=== PATIENT | male | born 1950 | race African-American/Black ===

== ENCOUNTER → 2018-07-17 | Outpatient (CLI) | payer MEDICARE, MEDICAID ==
--- NOTE | 2018-07-22 19:39 | SLEEPCENT ---
DATE OF PROCEDURE: 07/17/2018 ORDERED BY: Dr. Carmona Nocturnal polysomnography was performed for the titration of pressure therapy in this patient with severe obstructive sleep apnea syndrome. For testing, the patient was fit with a [employer]up[employer] Simplus full face mask of small size, 8 cm of water pressure was initially applied to the circuit and the lights were extinguished. 7 hours and 20 minutes of data were reviewed. There were 288 minutes of sleep identified. Sleep latency was prolonged at 35 minutes. Rapid eye movement (REM) latency was short at 67 minutes. Sleep architecture was fair with two REM cycles noted. Overall sleep efficiency was 66.7%. The patient's electrocardiogram showed a sinus rhythm with premature ventricular contractions (PVCs), average heart rate 80 beats per minute. EEG showed some coarsening and artifact. No focal events were identified. Respiratory events were reasonably palliated with continuous positive airway pressure (CPAP) at a pressure therapy of ++14. Further increases in CPAP pressure resulted in the emergence of central events. A bilevel device was tried late in the study but the patient did poorly and was unable to sleep after that point. IMPRESSION: Obstructive sleep apnea syndrome (G47.33). RECOMMENDATIONS: Nightly use of pressure therapy 14 cm of water.
== END ==
LOC: M SLEEP 19:36
PROVIDERS: ATTEND Internal Medicine Pulmonary Disease
DX: G47.33 Obstructive sleep apnea (adult) (pediatric) (principal)

== ENCOUNTER 2019-03-03 15:26 | Emergency (ER) | payer MEDICARE, MEDICAID ==
[~2019-03-03] VITALS: Ht 175.3 cm; Wt 131.8 kg
[2019-03-03] MEDS ORDERED: THIA100T7 PO (16:31)
[2019-03-03] MEDS ORDERED: ALEV220T22 PO (16:31)
[2019-03-03] MEDS ORDERED: BRIL90TA PO (16:31)
[2019-03-03] MEDS ORDERED: INSUHUMDS SC (16:31)
[2019-03-03] MEDS ORDERED: ROBI1LIQ9 PO (16:31)
[2019-03-03] MEDS ORDERED: LANTINJ4 SC (16:31)
[2019-03-03] MEDS ORDERED: GENT1SOL16 OU (16:31)
[2019-03-03] MEDS ORDERED: DULC5TAB PO (16:31)
[2019-03-03] MEDS ORDERED: LIPI20TA PO (16:31)
[2019-03-03] MEDS ORDERED: NITR4TASL SL (16:48)
[2019-03-03] MEDS ORDERED: AMLO10TA5 PO (16:48)
[2019-03-03] MEDS ORDERED: LOSA100T50 PO (16:48)
[2019-03-03] MEDS ORDERED: DRIS50003 PO (16:48)
[2019-03-03] MEDS ORDERED: VOLT1GEL15 TOP (16:48)
[2019-03-03] MEDS ORDERED: POTA10TA17 PO (16:48)
[2019-03-03] MEDS ORDERED: FLOM0.4C39 PO (16:48)
[2019-03-03] MEDS ORDERED: ABIL1TAB13 PO (16:48)
[2019-03-03] MEDS ORDERED: HYDR-3713 PO (16:48)
[2019-03-03] MEDS ORDERED: METF10004 PO (16:48)
[2019-03-03] MEDS ORDERED: DEPA1TAB PO (16:48)
[2019-03-03] MEDS ORDERED: IPRA0.00 NEB (16:48)
[2019-03-03] MEDS ORDERED: SIME40TA PO (16:48)
[2019-03-03] MEDS ORDERED: ASPI81TA85 PO (16:48)
[2019-03-03] MEDS ORDERED: METO200T28 PO (16:48)
[2019-03-03] MEDS ORDERED: FURO40TA2 PO (16:48)
[2019-03-03] MEDS ORDERED: RANE1000 PO (16:48)
[2019-03-03] MEDS ORDERED: GNP8.6TA PO (16:48)
[2019-03-03] MEDS ORDERED: MAALSUS19 PO (16:48)
[2019-03-03] MEDS ORDERED: DEPA1TAB3 PO (16:48)
[2019-03-03] MEDS ORDERED: SPIR-10 PO (16:48)
[2019-03-03] MEDS ORDERED: GLUC1KIT IM (16:48)
[2019-03-03] MEDS ORDERED: FINA5TAB2 PO (16:48)
[2019-03-03] MEDS ORDERED: NITR0.4D6 TOP (16:48)
[2019-03-03] MEDS ORDERED: GABA-1171 PO (16:48)
[2019-03-03] MEDS ORDERED: MORP1TAB19 PO (16:48)
[2019-03-03 16:51] LABS: HEMOGLOBIN 12.6 g/dl (13.5-17.5); MEAN CORPUSCULAR HEMOGLOBIN 33.3 pg (27.0-33.0); MEAN CORPUSCULAR HGB CONC 32.3 g/dl (32.0-36.5); MEAN CORPUSCULAR VOLUME 103.2 fl (80.0-96.0); PLATELET COUNT, AUTOMATED 191 10^3/uL (150-450); RED BLOOD COUNT 3.78 10^6/uL (4.30-6.10); WHITE BLOOD COUNT 5.9 10^3/uL (4.0-10.0)
[2019-03-03] MEDS ORDERED: EFFE75CA2 PO (16:52)
[2019-03-03] MEDS ORDERED: PANT40TA3 PO (16:52)
[2019-03-03] MEDS ORDERED: ENEMENE PR (16:52)
[2019-03-03] MEDS ORDERED: BISA10SU4 PR (16:52)
[2019-03-03] MEDS ORDERED: ACET1TAB55 PO (16:52)
[2019-03-03] MEDS ORDERED: MILKSUS3 PO (16:52)
[2019-03-03] MEDS ORDERED: ALPRAZolam 0.5 MG TAB PO ONE (17:00)
[2019-03-03 17:31] LABS: ACETAMINOPHEN LEVEL < 2.0 UG/ML (10.0-30.0); ALBUMIN 3.4 GM/DL (3.2-5.2); ALT/SGPT 26 U/L (12-78); BILIRUBIN,DIRECT < 0.1 MG/DL (0.0-0.2); BILIRUBIN,TOTAL 0.2 MG/DL (0.2-1.0); BLOOD UREA NITROGEN 15 MG/DL (7-18); CARBON DIOXIDE LEVEL 27 MEQ/L (21-32); CHLORIDE LEVEL 105 MEQ/L (98-107); CREATININE FOR GFR 1.27 MG/DL (0.70-1.30); ETHYL ALCOHOL (ETHANOL) < 0.003 % (0.000-0.010); GLOMERULAR FILTRATION RATE > 60.0 (>49); GLUCOSE, FASTING 255 MG/DL (70-100); POTASSIUM SERUM 4.4 MEQ/L (3.5-5.1); SALICYLATE LEVEL < 1.7 MG/DL (5.0-30.0); SODIUM LEVEL 140 MEQ/L (136-145); TOTAL PROTEIN 7.9 GM/DL (6.4-8.2)
[2019-03-03 18:46] VITALS: BP 140/79
== END 2019-03-03 19:00 | disposition home or self-care (01) ==
LOC: M ED 15:26
DX: F31.9 Bipolar disorder, unspecified (principal); I50.9 Heart failure, unspecified; E11.9 Type 2 diabetes mellitus without complications; I10 Essential (primary) hypertension; Z86.73 Personal history of transient ischemic attack (TIA), and cerebral infarction without residual deficits; Z79.82 Long term (current) use of aspirin; Z79.4 Long term (current) use of insulin; Z79.899 Other long term (current) drug therapy; Z88.0 Allergy status to penicillin; Z91.011 Allergy to milk products
CPT/HCPCS: 80048; 80076; 84443; 85027; 99284; G0480

== ENCOUNTER 2019-06-29 12:54 | Day surgery (SDC) | payer MEDICARE, MEDICAID ==
[~2019-06-29] VITALS: Ht 175.3 cm; Wt 132.9 kg
[~2019-06-29 12:54] MED LIST: ABIL1TAB13 PO; ACET1TAB55 PO; ALEV220T22 PO; AMLO10TA5 PO; ASPI81TA85 PO; BISA10SU4 PR; BRIL90TA PO; DEPA1TAB PO; DEPA1TAB3 PO; DRIS50003 PO; DULC5TAB PO; EFFE75CA2 PO; ENEMENE PR; FINA5TAB2 PO; FLOM0.4C39 PO; FURO40TA2 PO; GABA-1171 PO; GENT1SOL16 OU; GLUC1KIT IM; GNP8.6TA PO; HYDR-3713 PO; INSUHUMDS SC; IPRA0.00 NEB; LANTINJ4 SC; LIPI20TA PO; LOSA100T50 PO; LR 1,000 ML IV ONE; MAALSUS19 PO; METF10004 PO; METO200T28 PO; MIDAZOLAM INJ 2 MG/2 ML VIAL (J2250) IV SCH; MILKSUS3 PO; MORP1TAB19 PO; NITR0.4D6 TOP; NITR4TASL SL; PANT40TA3 PO; POTA10TA17 PO; RANE1000 PO; ROBI1LIQ9 PO; SIME40TA PO; SPIR-10 PO; THIA100T7 PO; VOLT1GEL15 TOP; fentaNYL 100 MCG/2 ML INJECTION (J3010) IV SCH
[2019-06-29] MEDS ORDERED: EPINEPHrine INJ 1 MG/ML 1ML VIAL ONE (12:55)
[2019-06-29] MEDS ORDERED: ROPIvacaine 0.5% 30 ML INJECTION (J2795 PER 1MG) ONE (12:55)
[2019-06-29] MEDS ORDERED: propofoL 200 MG/20 ML VIAL As Ordered ONE (13:33)
[2019-06-29] MEDS ORDERED: dexameTHASONE 4 MG/ML 1ML VIAL (J1100) As Ordered ONE (13:33)
[2019-06-29] MEDS ORDERED: LIDOCAINE 2% INJ 100 MG/5 ML SDV (FOR ANES.) As Ordered ONE (13:33)
[2019-06-29] MEDS ORDERED: ONDANSETRON 4MG/2ML VIAL (J2405) As Ordered ONE (13:33)
[2019-06-29] MEDS ORDERED: fentaNYL 100 MCG/2 ML INJECTION (J3010) As Ordered ONE ×2 (13:34→14:21)
[2019-06-29] MEDS ORDERED: MIDAZOLAM INJ 2 MG/2 ML VIAL (J2250) As Ordered ONE (14:21)
[2019-06-29] MEDS ORDERED: propofoL 500 MG/50 ML VIAL As Ordered ONE (14:32)
[2019-06-29] MEDS ORDERED: MIDAZOLAM INJ 5 MG/ML VIAL (J2250) As Ordered ONE (14:56)
[2019-06-29] MEDS ORDERED: LIDOCAINE 1% MDV 20ML VIAL As Ordered ONE (15:12)
[2019-06-29] MEDS ORDERED: KETAMINE HCL 200 MG/20 ML VIAL As Ordered ONE (15:12)
[2019-06-29] MEDS ORDERED: MEPERIDINE INJ 25 MG/ML VIAL (J2175) IV PRN (16:15)
[2019-06-29] MEDS ORDERED: METOCLOPRAMIDE INJ 10MG/2ML VIAL (J2765) IV PRN (16:15)
[2019-06-29] MEDS ORDERED: fentaNYL 100 MCG/2 ML INJECTION (J3010) IV PRN (16:15)
[2019-06-29] MEDS ORDERED: ONDANSETRON 4MG/2ML VIAL (J2405) IV PRN (16:15)
[2019-06-29] MEDS ORDERED: PERCOCET 5MG/325MG TAB PO PRN (16:15)
[2019-06-29] MEDS ORDERED: LR 1,000 ML IV SCH (16:15)
[2019-06-29] MEDS ORDERED: oxyCODONE 5MG TAB PO PRN (16:30)
[2019-06-29 18:15] VITALS: BP 162/83
--- NOTE | 2019-06-29 20:58 | RO ---
DATE OF PROCEDURE: 06/29/2019 PREPROCEDURE DIAGNOSIS: Left carpal and cubital tunnel syndrome. POSTPROCEDURE DIAGNOSIS: Left carpal and cubital tunnel syndrome. PROCEDURE: Left open cubital tunnel release and open carpal tunnel release. SURGEON: Toni Sweeney MD LYE TREATER: Josef Pozo, who was essential for retraction, especially given the significant obesity of this patient. ANESTHESIA: Monitored sedation with a peripheral nerve block and local anesthesia. COMPLICATIONS: None. PREOPERATIVE ANTIBIOTICS: None. BLOOD LOSS: Minimal. TOURNIQUET TIME: Approximately 30 minutes. This is a 68-year-old male who failed nonoperative modes of treatment. We discussed the risks and benefits of surgical release, including, but not limited to, infection, damage to surrounding structures, incomplete relief, and he wished to proceed. DESCRIPTION OF PROCEDURE: The patient was brought back to the operating room (OR) in the supine position, underwent moderate sedation. We then prepped and draped the left arm in the usual fashion. We had a time-out confirming site, side, and surgery. I then elevated the tourniquet up to 250 mmHg. We then made a longitudinal incision along Kelly's line and the ulnar border of the 4th digit. Using two Senns to retract, we sharply incised deep with a 15 blade until we encountered transverse carpal ligament and incised this. Once we identified the median nerve, we then used tenotomy to go superficial and deep to the transverse carpal ligament and release it distally along with proximally, including a small portion of antebrachial fascia. At which point, we irrigated the wound thoroughly, closed with #2-0 nylon with two horizontal mattress stitches. We then turned attention to the elbow and made a longitudinal incision between the medial epicondyle and olecranon. We sharply dissected through subcutaneous tissue using Bovie to control superficial bleeding, identified the ulnar nerve at the proximal extent anterior to the medial triceps, liberated it proximally off the intermuscular septum, then followed it distally through Cazares ligament, and the superficial and deep fascia of the flexor carpi ulnaris (FCU). Once it was thoroughly liberated, we ranged the elbow to ensure no subluxation, which did not occur. At which point, we irrigated the wound thoroughly, closed the subcutaneous tissue with #2-0 Vicryl, skin with a running #2-0 nylon stitch. The patient's incision was dressed with gauze, Tegaderm, Adaptic, Kerlix, and an Sanjeev. The tourniquet was let down, approximately 30 minutes. The patient was awakened and taken to the post-anesthesia care unit (PACU) in stable condition. POSTOP PLAN: The patient will have pain control and range of motion of the fingers and elbow. Will see him in 2 weeks for a repeat clinical check and suture removal.
== END 2019-06-29 19:05 | disposition home or self-care (01) ==
LOC: M SDC 12:54
PROVIDERS: ATTEND Orthopaedic Surgery Hand Surgery
DX: G56.02 Carpal tunnel syndrome, left upper limb (principal); G56.22 Lesion of ulnar nerve, left upper limb; I10 Essential (primary) hypertension; E78.5 Hyperlipidemia, unspecified; E10.9 Type 1 diabetes mellitus without complications; Z79.4 Long term (current) use of insulin; Z79.84 Long term (current) use of oral hypoglycemic drugs; G47.30 Sleep apnea, unspecified; Z79.82 Long term (current) use of aspirin; Z79.899 Other long term (current) drug therapy; N40.0 Benign prostatic hyperplasia without lower urinary tract symptoms; Z88.0 Allergy status to penicillin; Z91.011 Allergy to milk products
CPT/HCPCS: 64450; 64718; 64721; J1100; J2250; J2405; J2795; J3010

== ENCOUNTER 2019-07-28 16:05 | Day surgery (SDC) | payer MEDICARE, MEDICAID ==
[~2019-07-28] VITALS: Ht 177.8 cm; Wt 96.2 kg
[~2019-07-28 16:05] MED LIST changes: +ACETAMINOPHEN 1000MG 100ML IV BTL (OFIRMEV) (J0131 PER 10MG) As Ordered ONE; +LIDOCAINE 2% INJ 100 MG/5 ML SDV (FOR ANES.) As Ordered ONE; +MIDAZOLAM INJ 2 MG/2 ML VIAL (J2250) As Ordered ONE; -MIDAZOLAM INJ 2 MG/2 ML VIAL (J2250) IV SCH; +ONDANSETRON 4MG/2ML VIAL (J2405) As Ordered ONE; +PHENYLephrine HCL 500 MCG/5 ML (100MCG/ML) SYRINGE (J2370) As Ordered ONE; +ROCURONIUM BROMIDE 50 MG/5 ML VIAL As Ordered ONE; +SUGAMMADEX SODIUM 500 MG/5 ML VIAL (BRIDION) As Ordered ONE; +VITA200028 PO; +dexameTHASONE 4 MG/ML 1ML VIAL (J1100) As Ordered ONE; +ePHEDrine SULFATE 25 MG/5 ML(5MG/ML) SYRINGE As Ordered ONE; +fentaNYL 100 MCG/2 ML INJECTION (J3010) As Ordered ONE; -fentaNYL 100 MCG/2 ML INJECTION (J3010) IV SCH; +propofoL 200 MG/20 ML VIAL As Ordered ONE
[2019-07-28] MEDS ORDERED: MIDAZOLAM INJ 2 MG/2 ML VIAL (J2250) As Ordered ONE (17:00)
[2019-07-28] MEDS ORDERED: fentaNYL 100 MCG/2 ML INJECTION (J3010) As Ordered ONE (17:00)
[2019-07-28] MEDS ORDERED: BUPIVACAINE/EPIN 0.25% 30 ML VIAL As Ordered ONE (17:20)
[2019-07-28] MEDS ORDERED: ONDANSETRON 4MG/2ML VIAL (J2405) IV PRN (18:45)
[2019-07-28] MEDS ORDERED: fentaNYL 100 MCG/2 ML INJECTION (J3010) IV PRN (18:45)
[2019-07-28] MEDS ORDERED: LR 1,000 ML IV SCH (18:45)
[2019-07-28] MEDS ORDERED: PERCOCET 5MG/325MG TAB PO PRN (18:45)
[2019-07-28] MEDS ORDERED: MORPHINE 2 MG/ML 1ML VIAL (J2270) IV PRN (18:45)
[2019-07-28] MEDS ORDERED: oxyCODONE 5MG TAB PO PRN (18:45)
[2019-07-28] MEDS ORDERED: LEVALBUTEROL 1.25 MG/0.5 ML CONCENTRATE NEB As Ordered ONE (18:53)
[2019-07-28 20:05] VITALS: BP 134/93
--- NOTE | 2019-07-28 22:09 | RO ---
DATE OF PROCEDURE: 07/28/2019 PREPROCEDURE DIAGNOSIS: Right carpal and cubital tunnel syndrome. POSTPROCEDURE DIAGNOSIS: Right carpal and cubital tunnel syndrome. PROCEDURE: Right open carpal tunnel release and cubital tunnel release. SURGEON: Toni Sweeney MD CONTENT DESIGNER: None. ANESTHESIA: General. INDICATIONS: A 69-year-old male who failed nonoperative modes of treatment. He recently had his left side treated. We discussed the risks and benefits, including, but not limited to, infection, damage to surrounding structures, incomplete relief, and the patient wished to proceed. PREOPERATIVE ANTIBIOTICS: None. COMPLICATIONS: None. BLOOD LOSS: Minimal. DESCRIPTION OF PROCEDURE: The patient was brought back to the operating room (OR) in a supine position, underwent general anesthesia, at which point the right arm was prepped and draped in the usual fashion. We then had a time-out confirming site, side, and surgery. Elevated the tourniquet up to 250 mmHg. We then made a longitudinal incision following the ulnar border of the 4th digit along Kelly's line in the palm, sharply dissected through subcutaneous tissue, encountering transverse carpal ligament. It was adequately liberated and using a #15 blade and also tenotomy for proximal and distal extents. We then irrigated the wound thoroughly and closed with #3-0 Vicryl. We then made a longitudinal incision between the medial epicondyle and the olecranon, sharply dissecting subcutaneous tissue, careful to identify and preserve the medial antebrachial cutaneous nerve. We then encountered the ulnar nerve at the anterior border of the medial head of the triceps and liberated it distally through to Cazares's ligament, in the superficial and deep fascia of flexor carpal ulnaris (FCU) then proximally off the intermuscular septum. Once we did this, we ranged the elbow, did not see any subluxation, so we then irrigated the wound thoroughly, closed with #2-0 Vicryl, #3-0 nylon, dressed the wound with gauze, sterile Kerlix and a 4- and 6-inch Sanjeev. The patient was then awoken and taken to the post-anesthesia care unit (PACU) in stable condition. POSTOPERATIVE PLAN: The patient will work on pain control and range of motion. He will be seen in the office in 2 weeks.
== END 2019-07-28 20:20 | disposition home or self-care (01) ==
LOC: M SDC 16:05
PROVIDERS: ATTEND Orthopaedic Surgery Hand Surgery
DX: G56.01 Carpal tunnel syndrome, right upper limb (principal); G56.21 Lesion of ulnar nerve, right upper limb; I10 Essential (primary) hypertension; R07.9 Chest pain, unspecified; E10.9 Type 1 diabetes mellitus without complications; Z79.4 Long term (current) use of insulin; Z79.82 Long term (current) use of aspirin; Z79.899 Other long term (current) drug therapy; K21.9 Gastro-esophageal reflux disease without esophagitis; F31.9 Bipolar disorder, unspecified; F32.9 Major depressive disorder, single episode, unspecified; F41.9 Anxiety disorder, unspecified; N40.0 Benign prostatic hyperplasia without lower urinary tract symptoms; Z88.0 Allergy status to penicillin; Z91.011 Allergy to milk products
CPT/HCPCS: 64718; 64721; J0131; J1100; J2250; J2370; J2405; J3010

== ENCOUNTER 2019-09-30 17:23 | Emergency (ER) | payer MEDICARE, MEDICAID ==
[~2019-09-30] VITALS: Ht 177.8 cm; Wt 100.0 kg
[~2019-09-30 17:23] MED LIST changes: -ACETAMINOPHEN 1000MG 100ML IV BTL (OFIRMEV) (J0131 PER 10MG) As Ordered ONE; -LIDOCAINE 2% INJ 100 MG/5 ML SDV (FOR ANES.) As Ordered ONE; -LR 1,000 ML IV ONE; -MIDAZOLAM INJ 2 MG/2 ML VIAL (J2250) As Ordered ONE; -ONDANSETRON 4MG/2ML VIAL (J2405) As Ordered ONE; -PHENYLephrine HCL 500 MCG/5 ML (100MCG/ML) SYRINGE (J2370) As Ordered ONE; -ROCURONIUM BROMIDE 50 MG/5 ML VIAL As Ordered ONE; -SUGAMMADEX SODIUM 500 MG/5 ML VIAL (BRIDION) As Ordered ONE; -dexameTHASONE 4 MG/ML 1ML VIAL (J1100) As Ordered ONE; -ePHEDrine SULFATE 25 MG/5 ML(5MG/ML) SYRINGE As Ordered ONE; -fentaNYL 100 MCG/2 ML INJECTION (J3010) As Ordered ONE; -propofoL 200 MG/20 ML VIAL As Ordered ONE
[2019-09-30 21:24] VITALS: BP 152/70
== END 2019-09-30 22:33 | disposition home or self-care (01) ==
LOC: M ED 17:23
DX: F32.9 Major depressive disorder, single episode, unspecified (principal); F43.0 Acute stress reaction; I10 Essential (primary) hypertension; E11.9 Type 2 diabetes mellitus without complications; Z99.81 Dependence on supplemental oxygen; Z88.0 Allergy status to penicillin; Z91.011 Allergy to milk products; Z79.899 Other long term (current) drug therapy; Z79.4 Long term (current) use of insulin; Z79.02 Long term (current) use of antithrombotics/antiplatelets; Z79.891 Long term (current) use of opiate analgesic